=== PATIENT | female | born 1995 | race African-American/Black ===

== ENCOUNTER 2021-09-05 15:16 | Emergency (ER) | payer OTHER | END 2021-09-05 15:26 | disposition left against medical advice (07) | LOC: EMS 15:26 | DX: Z53.21 Procedure and treatment not carried out due to patient leaving prior to being seen by health care provider (principal) ==

== ENCOUNTER 2023-02-16 14:35 | Emergency (ER) | payer OTHER ==
[~2023-02-16] VITALS: Ht 154.9 cm; Wt 110.0 kg
[2023-02-16] MEDS ORDERED: ACYC400T20 PO (14:42)
[2023-02-16] MEDS ORDERED: ATOR20TA65 PO (14:42)
[2023-02-16] MEDS ORDERED: INSU100I26 SQ (14:42)
[2023-02-16] MEDS ORDERED: LISI2.5T13 PO (14:42)
[2023-02-16] MEDS ORDERED: METF-446 PO (14:42)
[2023-02-16] MEDS ORDERED: INSU100V36 SQ (14:42)
[2023-02-16 15:40] VITALS: BP 121/72
[2023-02-16] MEDS ORDERED: LORA10TA7 PO (15:51)
== END 2023-02-16 16:20 | disposition home or self-care (01) ==
LOC: EMS 14:50
DX: J30.9 Allergic rhinitis, unspecified (principal); E11.9 Type 2 diabetes mellitus without complications; I10 Essential (primary) hypertension
CPT/HCPCS: 82962; 99282

== ENCOUNTER 2023-05-10 10:40 | Emergency (ER) | payer OTHER ==
[~2023-05-10] VITALS: Ht 157.5 cm; Wt 95.5 kg
[~2023-05-10 10:40] MED LIST: ACYC400T20 PO; ATOR20TA65 PO; INSU100I26 SQ; INSU100V36 SQ; LISI2.5T13 PO; LORA10TA7 PO; METF-446 PO
[2023-05-10 10:42] VITALS: TEMP 98.5
[2023-05-10 12:13] LABS: APPEARANCE,URINE CLEAR (CLEAR); BILIRUBIN,URINE NEGATIVE (NEGATIVE); COLOR,URINE LIGHT YELLOW (YELLOW); GLUCOSE, URINE (UA) NEGATIVE (NEGATIVE); KETONES,URINE NEGATIVE (NEGATIVE); LEUKOCYTE ESTERASE ,URINE NEGATIVE (NEGATIVE); NITRATE,URINE NEGATIVE (NEGATIVE); OCCULT BLOOD,URINE NEGATIVE (NEGATIVE); PH,URINE 6.5 (5.0-8.0); PROTEIN,URINE NEGATIVE (NEGATIVE); SPECIFIC GRAVITIY, URINE 1.012 (1.003-1.030); UROBILINOGEN,URINE <=1.0 mg/dL (<=1.0)
[2023-05-10 12:28] LABS: BACTERIA,URINE None Seen /HPF (None Seen); RBC,URINE None Seen /HPF (0-2); SQUAMOUS EPITHELIAL CELL,UR Few /LPF (None Seen); WBC,URINE None Seen /HPF (0-5)
[2023-05-10] MEDS ORDERED: METR500 PO (13:12)
[2023-05-10] MEDS ORDERED: PSEU-191 PO (13:12)
[2023-05-10 13:18] VITALS: BP 138/82; PULSE 70; RESP 18
== END 2023-05-10 13:20 | disposition home or self-care (01) ==
LOC: EMS 10:53
DX: N76.0 Acute vaginitis (principal); R09.81 Nasal congestion; E11.9 Type 2 diabetes mellitus without complications; I10 Essential (primary) hypertension
CPT/HCPCS: 81001; 82962; 84703; 87210; 99283

== ENCOUNTER 2024-04-01 11:51 | Emergency (ER) | payer OTHER ==
[~2024-04-01] VITALS: Ht 152.4 cm; Wt 68.2 kg
[~2024-04-01 11:51] MED LIST changes: +METR500 PO; +PSEU-191 PO
[2024-04-01 12:00] VITALS: BP 123/73; PULSE 72; RESP 18; TEMP 98.3
[2024-04-01 17:00] LABS: GLUCOMETER DEV NAME(LOC) ERT.5; GLUCOSE,POINT OF CARE 49 MG/DL (70-110)
[2024-04-01 17:00] LABS: GLUCOMETER DEV NAME(LOC) ERT.5; GLUCOSE,POINT OF CARE 63 MG/DL (70-110)
[2024-04-01 17:00] LABS: GLUCOMETER DEV NAME(LOC) ERT.5; GLUCOSE,POINT OF CARE 94 MG/DL (70-110)
[2024-04-01] MEDS ORDERED: CEPH-558 PO (17:05)
[2024-04-01] MEDS: CEPHALEXIN MONOHYDRATE 500 MG CAPSULE PO ONE (17:20)
[2024-04-01] MEDS: BACITRACIN 0.9 GM PACKET OINTMENT TP ONE (17:20)
[2024-04-01] MEDS ORDERED: BACI28.410 TP (17:36)
[2024-04-02 18:11] LABS: GLUCOMETER DEV NAME(LOC) ERT.5; GLUCOSE,POINT OF CARE 157 MG/DL (70-110)
== END 2024-04-01 17:57 | disposition home or self-care (01) ==
LOC: EMS 11:51
DX: N61.0 Mastitis without abscess (principal); E11.649 Type 2 diabetes mellitus with hypoglycemia without coma; E11.9 Type 2 diabetes mellitus without complications; I10 Essential (primary) hypertension
CPT/HCPCS: 82962; 99283